=== PATIENT | female | born 1940 | race Caucasian/White ===

== ENCOUNTER 2017-04-09 07:15 | Inpatient (IN) | payer OTHER ==
[2017-04-11] MEDS ORDERED: ceFAZolin 2 GM/SWFI 2 GM/20 ML SYR IVP ONE (10:35)
[2017-04-15] MEDS ORDERED: ROPIVACAINE 0.2% 80 MG, EPINEPHrine 0.2 MG, KETOROLAC TROMETHAMINE 30 MG in BAG 0 ML IU ONE (06:00)
[2017-04-15] MEDS ORDERED: FAMOTIDINE 20 MG TAB PO ONE (06:00)
[2017-04-15] MEDS ORDERED: DEXAMETHASONE 4 MG/ML VIAL IVP ONE (06:00)
[2017-04-15] MEDS ORDERED: ceFAZolin 2 GM/SWFI 2 GM/20 ML SYR IVP ONE (06:00)
[2017-04-15] MEDS ORDERED: ACETAMINOPHEN 325 MG TAB PO ONE (06:00)
[2017-04-15] MEDS ORDERED: LR 1,000 ML IV ONE (06:11)
[2017-04-15] MEDS ORDERED: LIDOCAINE 1% 2 ML INJ ID PRN (06:11)
[2017-04-15] MEDS ORDERED: ceFAZolin 1 GM/5 ML SYR ONE (06:27)
[2017-04-15] MEDS ORDERED: CALCIUM CHLORIDE 1 GM/10 ML INJ ONE (06:28)
[2017-04-15] MEDS ORDERED: THROMBIN (BOVINE) 5,000 UNIT VIAL TP ONE (06:28)
[2017-04-15] MEDS ORDERED: MIDAZOLAM 2 MG/2 ML VIAL ONE (06:59)
[2017-04-15] MEDS ORDERED: MIDAZOLAM 2 MG/2 ML VIAL IVP ONE (06:59)
--- NOTE | 2017-04-15 07:00 | PDANEPAE ---
ANE Past Medical History - Cardiovascular History Hx Hypertension: Yes Hx Arrhythmias: No Hx Chest Pain: No Hx Coronary Artery / Peripheral Vascular Disease: No Hx CHF / Valvular Disease: No Hx Palpitations: No - Pulmonary History Hx COPD: No Hx Asthma/Reactive Airway Disease: No Hx Recent Upper Respiratory Infection: No Hx Oxygen in Use at Home: No Hx Sleep Apnea: No Sleep Apnea Screening Result - Last Documented: Negative - Neurologic History Hx Cerebrovascular Accident: No Hx Seizures: No Hx Dementia: No - Endocrine History Hx Diabetes: No Hypothyroid: Yes Obesity: no - Renal History Hx Renal Disorders: No - Liver History Hx Hepatic Disorders: No - Neurological & Psychiatric Hx Hx Neurological and Psychiatric Disorders: Yes Neurological / Psychiatric History Comment: depression - GI History Hx Gastrointestinal Disorders: No - Other Health History Other Health History: glaucoma. bruises easily - Chronic Pain History Chronic Pain: Yes (back, left side of cervical scoliosis) - Surgical History Prior Surgeries: bilat cararact, laser surgery glaucoma. spondythesis 2012 ANE Review of Systems Review of Systems: - Exercise capacity METS (RN): 4 METS ANE Patient History - Allergies Allergies/Adverse Reactions: No Known Allergies Allergy (Verified 03/19/14 15:58) - Home Medications Home Medications: Citalopram Hydrobromide [celeXA 10 MG] 10 mg PO DAILY 03/01/14 [Last Taken 1 Day Ago ~04/14/17] Levothyroxine [Synthroid 75 mcg (*)] 75 mcg PO DAILY06 03/01/14 [Last Taken 04:30] Cholecalciferol Vit D3 [Vitamin D3 (*)] 3,000 units PO DAILY 02/27/17 [Last Taken 1 Week Ago ~04/08/17] Fluticasone Nasal [Flonase Nasal [place] (RX)] 1 sprays NASAL BID 02/27/17 [Last Taken 04/15/17 04:30] Herbals/Supplements -Info Only 1 ea PO DAILY 02/27/17 [Last Taken 1 Week Ago ~] Indomethacin [Indocin 25 mg (*)] 50 mg PO DAILY PRN 02/27/17 [Last Taken 1 Week Ago ~04/08/17] LORazepam [Ativan (*)] 0.5 mg PO DAILY PRN 02/27/17 [Last Taken 1 Day Ago ~04/14] Latanoprost 0.005% [Xalatan 0.005% (*)] 1 drop EACHEYE HS 02/27/17 [Last Taken 1 Day Ago ~04/14/17] Lisinopril [Zestril 2.5 mg (*)] 2.5 mg PO DAILY 02/27/17 [Last Taken 1 Day Ago ~ 04/14/17] Tazarotene [Tazorac] 1 sheyla TP HS 02/27/17 [Last Taken 1 Day Ago ~04/14/17] - NPO status NPO Since - Liquids (Date): 04/14/17 NPO Since - Liquids (Time): 21:00 NPO Since - Solids (Date): 04/14/17 NPO Since - Solids (Time): 21:00 - Smoking Hx Smoking Status: Never smoked - Family Anes Hx Family Hx Anesthesia Complications: none ANE Labs/Vital Signs - Vital Signs Blood Pressure: 146/73 Heart Rate: 73 Respiratory Rate: 18 O2 Sat (%): 95 Height: 152.4 cm Weight: 55.792 kg ANE Physical Exam - Airway Neck exam: FROM Mallampati Score: Class 1 Mouth exam: normal dental/mouth exam - Pulmonary Pulmonary: no respiratory distress - Cardiovascular Cardiovascular: regular rate and rhythym - ASA Status ASA Status: II ANE Anesthesia Plan Anesthesia Plan: GA w LMA, spinal
--- NOTE | 2017-04-15 07:05 | PDHPUP ---
History & Physical Update H&P update statement: This history and physical update is based on an assessment of the patient which was completed after admission or registration (within 24 hours), but prior to the surgery/procedure. H&P update: H&P reviewed & patient examined, no change in patient's condition since H&P completed
[2017-04-15] MEDS ORDERED: fentaNYL 100 MCG/2 ML INJ ONE (07:08)
[2017-04-15] MEDS ORDERED: PROPOFOL/EMULSION 500 MG/50 ML BOTTLE IV ONE (07:08)
[2017-04-15] MEDS ORDERED: LIDOCAINE 2% 5 ML SDV ONE (07:30)
[2017-04-15] MEDS ORDERED: NALOXONE HCL 0.4 MG/ML INJ IVP PRN (09:26)
[2017-04-15] MEDS ORDERED: HYDROCODONE/APAP 5/325 TAB PO PRN (09:26)
[2017-04-15] MEDS ORDERED: fentaNYL 100 MCG/2 ML INJ IVP PRN (09:26)
[2017-04-15] MEDS ORDERED: ONDANSETRON 4 MG/2 ML VIAL IVP PRN (09:26)
[2017-04-15] MEDS ORDERED: LR 500 ML IV PRN (09:26)
--- NOTE | 2017-04-15 09:54 | POSTOPPROG ---
Post Op Note Date of Operation: 04/15/17 Surgeon: Mouna Plascencia Medical Specialist: Monique Clemens PA-C Anesthesia: Spinal Pre-op Diagnosis: right knee osteoarthritis Post-op Diagnosis: right knee osteoarthritis Indication: right knee pain Procedure: right TKA Inf/Abcess present in the surg proc area at time of surgery?: No EBL: Minimal Complications: none
[2017-04-15] MEDS ORDERED: POLYETHYLENE GLYCOL 3350 17 GM PKT PO PRN (09:56)
[2017-04-15] MEDS ORDERED: CYCLOBENZAPRINE 10 MG TAB PO PRN (09:56)
[2017-04-15] MEDS ORDERED: MAGNESIUM HYDROXIDE 30 ML UDCUP PO PRN (09:56)
[2017-04-15] MEDS ORDERED: LACTULOSE 20 GM/30 ML UDCUP PO PRN (09:56)
[2017-04-15] MEDS ORDERED: DIPHENOXYLATE/ATROPINE LOMOTIL 1 TAB PO PRN (09:56)
[2017-04-15] MEDS ORDERED: PROMETHAZINE HCL 25 MG/ML INJ IVP PRN (09:56)
[2017-04-15] MEDS ORDERED: BISACODYL 10 MG SUPP PR PRN (09:56)
[2017-04-15] MEDS ORDERED: PROMETHAZINE HCL 25 MG SUPPR PR PRN (09:56)
[2017-04-15] MEDS ORDERED: FAMOTIDINE 20 MG TAB PO PRN (09:56)
[2017-04-15] MEDS ORDERED: diphenhydrAMINE 25 MG CAP PO PRN (09:56)
--- NOTE | 2017-04-15 09:56 | SOAPPROG ---
SOAP Progress Note Assessment/Plan: Assessment/Plan: 76y/o female s/p right TKA - stable and doing well - orders as written - post-op xrays pending - PT/OT, no knee flexion beyond 90 degrees - active care system for DVT prevention - anticipate discharge home tomorrow pending clinical course - call with issues or concerns 04/15/17 09:54 Subjective: Doing well, no pain Objective: Vital Signs Temp Pulse Resp BP Pulse Ox 36.7 C 73 18 111/51 L 95 04/15/17 09:34 04/15/17 07:00 04/15/17 09:46 04/15/17 09:46 04/15/17 09:46 NAD, no distress EOMi, face symmetric MAEx4 incision clean, dressed ICD10 Worksheet Patient Problems: Problems Problem Status Onset Osteoarthritis Acute - ICD10 Problem Qualifiers (1) Osteoarthritis
[2017-04-15] MEDS ORDERED: LORazepam 0.5 MG TAB PO PRN (10:00)
[2017-04-15] MEDS ORDERED: LR 1,000 ML IV SCH (10:00)
--- NOTE | 2017-04-15 10:04 | POSTANESTH ---
Post Anesthetic Evaluation Cardiovascular Status: Normal, Stable Respiratory Status: Normal, Stable Level of Consciousness/Mental Status: Can Participate in Eval Pain Control: Adequate, Prn Tx Ordered Nausea/Vomiting Control: Adequate, Prn Tx Ordered Complications Possibly Related to Anesthesia: None Noted (Adductor canal block performed under US guidance in PACU.)
[2017-04-15 10:57] VITALS: RESP 16
[2017-04-15] MEDS: ACETAMINOPHEN 325 MG TAB PO SCH ×2 (13:22→18:06)
[2017-04-15] MEDS: oxyCODONE IR 5 MG TAB PO PRN ×3 (13:23→21:56)
[2017-04-15] MEDS: ceFAZolin 2 GM/DEXTROSE 100 ML IV SCH ×2 (13:24→21:55)
--- NOTE | 2017-04-15 17:52 | GOP ---
[f rep st] OPERATIVE REPORT DATE OF OPERATION: 04/15/2017 SURGEON: Mouna Plascencia MD MECHANICAL MANUFACTURING TECHNICIAN: Monique Clemens, ROSEMARIE ANESTHESIA: Spinal with adductor canal block and sedation. PREOPERATIVE DIAGNOSIS: Severe osteoarthritis, right knee. POSTOPERATIVE DIAGNOSIS: Severe osteoarthritis, right knee. PROCEDURE PERFORMED: Right total knee arthroplasty. FINDINGS: Preoperative x-rays of the patient's right knee demonstrated severe osteoarthritis. At th e time of surgery, this finding was confirmed. The patient had complete loss of the articular cartil age in the lateral compartment. There was moderate loss in the medial compartment and patellofemoral joint. At the time of surgery, a cemented Dobbs and Nephew Journey II total knee arthroplasty was p erformed. A posterior stabilized knee was utilized. A size 2 femoral component was cemented into pl galina. This was Oxinium coated. A size 1 tibial base plate was also utilized. This also was cemented into place. A 13 mm thick cross-linked polyethylene insert was placed in the metal backing of the t ibia. The knee was taken through range of motion and noted to be stable in full extension and flexio n. The patient achieved excellent extension and 135 degrees of flexion on the table. Finally, a 29 mm oval patellar component was cemented into place. This tracked well in the trochlear groove. ESTIMATED BLOOD LOSS: Less than 100 cc. DESCRIPTION OF PROCEDURE: The patient was taken to the operating room, placed in supine position on the operating table. Following induction of adequate spinal anesthesia and sedation, the right leg a nd knee were prepped and draped in the usual sterile manner. The patient received 2 g of IV Ancef. The leg was elevated and exsanguinated, and the tourniquet inflated to 275 mmHg. A midline incision was made extending from 2 fingerbreadths superior to the superior pole of the patella distally to the tibial tubercle. Incision was carried down through the subcutaneous tissue to the retinaculum of th e knee. A medial parapatellar arthrotomy was then performed and the patella was everted laterally. Our attention was turned first to the patella. The thickness of the patella was measured and then a 9 mm cut was taken from the posterior patella. The patella was sized and the oval 29 mm patellar com ponent was chosen as the best fit. The metal protector plate was placed on the cut surface of the pa tella and it was placed in the lateral gutter. The knee was flexed up and then a drill hole was plac ed in the distal femur and using intramedullary referencing, the distal femoral cutting block was pos itioned on the distal femur. A +2 cut was taken from the distal femur due to the patient's pre-exist ing flexion contracture. The femur was then sized and the size 2 femoral component was felt to be th e best fit. The block was pinned and the anterior, posterior, and chamfer cuts were made. The notch was then cleared. The reamer was used first followed by the box estimator. A trial reduction was perf ormed and a good fit was noted with the size 2 femoral component. The component was removed and our attention was turned to the tibia. The lollipop had been used prior to cutting the femur to determine the thickness of the tibial cut. The tibia was retracted anteriorly and again intramedullary referencing was used for the tibial cut. A drill hole was placed in the midline of the tibia and the intramedullary guide was inserted and po sitioned and pinned based on the previous line determined by the lollipop. Once the alignment was de termined and the cutting block was positioned and pinned, the tibial cut was made. Care was taken to protect the posterior knee and the collateral ligaments. The cut surface of the tibia was then diane ured and a size 1 tibial component was felt to be the best fit. It was pinned into position and then the keel punch was utilized. A trial reduction was performed with all the components and the knee w as taken through a range of motion. It was stable in extension and flexion. The 13 mm polyethylene was felt to be the best fit. The patellar component was also drilled and a trial was performed. It tracked well in the trochlear groove. All the trial components were removed and the bony surfaces were thoroughly irrigated and dried. The cement was mixed. The tibial component was cemented first, followed by the femoral component, and t he patellar component. Pressure was held on all the components while the cement hardened. Excess ce ment was removed from around the edges of the prosthesis. The posterior capsule and extensor mechani sm were injected with joint cocktail. Once the cement was hard, the trial polyethylene was removed a nd the permanent polyethylene insert was placed in the metal backing of the tibia. The wound was tho roughly irrigated out. The retinaculum of the knee was closed using #2 FiberWire in a [id number] fashion. The subcutaneous tissues were closed using 2-0 Vicryl. The skin was closed using milad . Sterile dressings were applied. The patient tolerated the procedure well. There were no complica tions. Estimated blood loss minimal. Final sponge and needle counts were correct. The patient was transported to the recovery room in good condition. /[id number]/MODL
[2017-04-15] MEDS ORDERED: TAZAROTENE TP SCH (21:00)
[2017-04-15] MEDS ORDERED: LATANOPROST 0.005% 2.5 ML OPHT DROPS EACHEYE SCH (21:00)
[2017-04-15] MEDS: SENNOSIDES/DOCUSATE SODIUM TAB PO SCH (22:00)
[2017-04-15] MEDS: FLUTICASONE NASAL 120 SPRAYS/16 GM MDI EACHNARE SCH (22:09)
[2017-04-16] MEDS: ACETAMINOPHEN 325 MG TAB PO SCH ×3 (01:12→14:11)
[2017-04-16 05:38] LABS: HEMATOCRIT 30.9 % (38.0-47.0); HEMOGLOBIN 11.2 g/dL (12.6-16.3)
[2017-04-16] MEDS ORDERED: LEVOTHYROXINE 75 MCG TAB PO SCH (06:00)
[2017-04-16] MEDS: oxyCODONE IR 5 MG TAB PO PRN (06:03)
[2017-04-16 07:19] VITALS: PULSE 57; TEMP 97.5; O2SAT 96
[2017-04-16] MEDS ORDERED: LISINOPRIL 2.5 MG TAB PO SCH (09:00)
[2017-04-16] MEDS ORDERED: CITALOPRAM 20 MG TAB PO SCH (09:00)
[2017-04-16] MEDS ORDERED: ASPIRIN 325 MG TAB PO SCH (09:00)
[2017-04-16] MEDS ORDERED: NON-FORMULARY NEW DRUG (Citalopram Hydrobromide [Celexa 10 Mg] 10 MG) PO SCH (09:00)
[2017-04-16] MEDS ORDERED: FERROUS SULFATE 140 MG TAB.ER PO SCH (09:00)
[2017-04-16] MEDS ORDERED: ASPIRIN 81 MG CHEWABLE TAB PO SCH (09:00)
[2017-04-16] MEDS: SENNOSIDES/DOCUSATE SODIUM TAB PO SCH (09:27)
[2017-04-16 09:28] VITALS: BP 107/59
--- NOTE | 2017-04-16 09:48 | ASMTCMCOM ---
CM Note CM Note Notes: Chart reviewed. Patient has home eval via [facility] for presurgical evaluation. She wishes to have [facility] provide her home health care physical therapy. Referral made via [employer]. Address verified as well as alternate phone number. Her [id number] is also providing support. Offered to refer to [facility]. Patient declines at this time. Physical therapy recommending home PT. Plan to dc with [facility] when medically stable. CM to follow Date Signed: 04/16/2017 09:47 AM Electronically Signed By:Lola Irvin RN
[2017-04-16] MEDS: FLUTICASONE NASAL 120 SPRAYS/16 GM MDI EACHNARE SCH (10:48)
--- NOTE | 2017-04-16 10:57 | SOAPPROG ---
SOAP Progress Note Assessment/Plan: Assessment/Plan: 76y/o female s/p right TKA - stable and doing well - pain well managed - post-op xrays show stable components - PT/OT, no knee flexion beyond 90 degrees; did well with stairs this morning - active care system for DVT prevention - discharge home early afternoon today; encouraged patient to call with any issues or concerns, f/u in 2 weeks; needs home PT/OT 04/16/17 10:55 Subjective: Pain well controlled. Very pleased with her progress thus far Objective: Vital Signs Temp Pulse Resp BP Pulse Ox 36.4 C 57 L 16 107/59 L 96 04/16/17 07:17 04/16/17 07:17 04/16/17 07:17 04/16/17 09:27 04/16/17 07:17 Laboratory Results 04/16/17 04:00 04/15/17 04/16/17 04/17/17 05:59 05:59 05:59 Intake Total 3225 Output Total 1100 Balance 2125 NAD, well appearing, no distress EOMi, face symmetric MAEx4 right knee extension 5, flexion 90 incision CDI, minimal bloody drainage at inferior portion of incision dressing changed in sterile fashion ICD10 Worksheet Patient Problems: Problems Problem Status Onset Osteoarthritis Acute - ICD10 Problem Qualifiers (1) Osteoarthritis
--- NOTE | 2017-04-16 11:02 | PDIAF ---
- Diagnosis Diagnosis: right knee arthritis Code Status: Full Code - Medication Management Discharge Medications: Medications to Continue on Transfer Citalopram Hydrobromide [celeXA 10 MG] 5 mg PO HS 03/01/14 [Last Taken 1 Day Ago ~04/14/17] Levothyroxine [Synthroid 75 mcg (*)] 75 mcg PO DAILY06 03/01/14 [Last Taken 04:30] Cholecalciferol Vit D3 [Vitamin D3 (*)] 3,000 units PO DAILY 02/27/17 [Last Taken 1 Week Ago ~04/08/17] Fluticasone Nasal [Flonase Nasal [place]] 1 sprays NASAL BID 02/27/17 [Last Taken 04/15/17 04:30] Herbals/Supplements -Info Only 1 ea PO DAILY 02/27/17 [Last Taken 1 Week Ago ~] Indomethacin [Indocin 25 mg (*)] 25 mg PO DAILY PRN 02/27/17 [Last Taken 1 Week Ago ~04/08/17] LORazepam [Ativan (*)] 0.5 mg PO DAILY PRN 02/27/17 [Last Taken 1 Day Ago ~04/14] Latanoprost 0.005% [Xalatan 0.005% (*)] 1 drop EACHEYE HS 02/27/17 [Last Taken 1 Day Ago ~04/14/17] Lisinopril [Zestril 2.5 mg (*)] 2.5 mg PO DAILY 02/27/17 [Last Taken 1 Day Ago ~ 04/14/17] Tazarotene [Tazorac] 1 sheyla TP 02/27/17 [Last Taken 1 Day Ago ~04/14/17] Acetaminophen [Tylenol 325mg (*)] 650 mg PO Q6HRS tab 04/16/17 [Last Taken Unknown] Aspirin [Aspirin 81mg (*)] 81 mg PO DAILY tab.chew 04/16/17 [Last Taken Unknown ] Ferrous Sulfate [Slow Fe 140 MG (*)] 140 mg PO DAILY tab.er 04/16/17 [Last Taken Unknown] oxyCODONE IR [Oxycodone Ir (*)] 5 - 10 mg PO Q4-6PRN PRN tab 04/16/17 [Last Taken Unknown] Discharge Medications: Refer to the Discharge Home Medication list for PRN reason. - Orders Services needed: Home Care, Physical Therapy, Occupational Therapy Home Care Face to Face: I certify that this patient was under my care and that I had the required [id number] encounter meeting the encounter requirements on the discharge day. My findings support the fact that the patient is homebound as defined in Home Care Face to Face Continued: CMS Chapter 7 Medicare Benefits Manual 30.1.1 , The condition of the patient is such that there exists a normal inability to leave home and consequently, leaving home would require a considerable and taxing effort. Diet Recommendation: no restrictions on diet Dayron Stockings Discontinue Date: active care system Wound Care Instructions: keep incision clean and dry Sutures/Candie Site: will remove at post-op visit Activity/Weight Bearing Restrictions: WBAT, use walker for assistance - Follow Up Care Current Providers and Referrals: FELIPE VILLALTA [Primary Care Provider] -
--- NOTE | 2017-04-16 11:16 | ASMTCMCOM ---
CM Note CM Note Notes: Patient medically cleared for discharge. Updated forms sent per [employer]scripts. Spoke with intake at [facility]. CM avaoilable should other needs arise. Date Signed: 04/16/2017 11:15 AM Electronically Signed By:Lola Irvin RN
--- NOTE | 2017-04-16 16:20 | ASDISCHSUM ---
Discharge Information Plan Status:Home with Home Health Medically Cleared to Leave:04/15/2017 Discharge Date:04/16/2017 03:19 PM CM D/C Disposition:Home Health Service [facility] D/C Disposition:[id number] Projected Discharge Date:04/16/2017 11:00 AM Transportation at D/C:Family Discharge Delay Reason: Follow-Up Date:04/16/2017 11:00 AM Discharge Slot: Final Diagnosis: Placement Information Referral Type:*Home Health Care Services Referral ID:[id number] Provider Name:[facility] [place] Address 1:[address] [address] Address 2: City:[place] Selection Factors: State:[place] Patient Contact Information Contact Name:YAO Relationship:Son Address: Work Phone: City: [facility][1] Phone: [facility]: Email: Financial Information Financial Class: Primary Plan Desc:MEDICARE INPATIENT Primary Plan Number:[id number] Secondary Plan Desc:[facility] Secondary Plan Number:[id number] Assessment Information LACE LACE Length of stay for Answers: 1 day current admission Acuity / Level of Care Answers: No. Emergency dept visits in Answers: 0 last 6 months Score: 1 Date Signed: 04/16/2017 09:42 AM Electronically Signed By:Lola Irvin RN [facility] CM Progress Note CM Note CM Note Notes: Chart reviewed. Patient has home eval via [facility] for presurgical evaluation. She wishes to have [facility] provide her home health care physical therapy. Referral made via allscripts. Address verified as well as alternate phone number. Her [id number] is also providing support. Offered to refer to [facility]. Patient declines at this time. Physical therapy recommending home PT. Plan to dc with [facility] when medically stable. CM to follow Date Signed: 04/16/2017 09:47 AM Electronically Signed By:Lola Irvin RN [facility] CM Progress Note CM Note CM Note Notes: Patient medically cleared for discharge. Updated forms sent per [employer]. Spoke with intake at [facility]. CM avaoilable should other needs arise. Date Signed: 04/16/2017 11:15 AM Electronically Signed By:Lola Irvin RN Intervention Information
--- NOTE | 2017-04-19 16:38 | GDS ---
[f rep st] DISCHARGE SUMMARY ADMISSION DIAGNOSIS: Right knee osteoarthritis. DISCHARGE DIAGNOSIS: Right knee osteoarthritis. HOSPITAL COURSE: Patient is a pleasant 76-year-old female, who is well known to our service for ongo ing right knee pain. She had evidence of severe osteoarthritis and after careful decision-making and discussion, she elected to proceed forth with a right total knee arthroplasty. This procedure was done by Dr. Mouna Plascencia on April 15, 2017. She tolerated the procedure wel l without complication. She was in good and stable condition in the PACU and was transferred to the floor when PACU criteria was met. She worked with physical therapy and occupational therapy and cont inued to improve. Her pain was well managed. Her postoperative x-rays showed stable components. Darren soto was in good and stable condition and ready for discharge home with home health care on April 16, 2017. Her followup appointment is scheduled for April 29 at 2 p.m. at our office. All of her questions were answered prior to discharge home and she was given strict instruction to follow up sooner with a ny issues or changes. /[id number]/MODL
== END 2017-04-16 15:19 | disposition home health service (06) | DRG 470 ==
LOC: F3N 04-15 05:52
PROVIDERS: ADMIT Orthopaedic Surgery; ATTEND Orthopaedic Surgery
PROC: 0SRC0J9 Replacement of Right Knee Joint with Synthetic Substitute, Cemented, Open Approach (ICD-10-PCS; principal; 2017-04-15 07:15)
DX: M17.11 Unilateral primary osteoarthritis, right knee (principal)
CPT/HCPCS: 97110-GP; 97116-GP; 97161-GP; 97165-GO; 97530-GP; C1713; G8978-GP-CJ; G8979-GP-CI; G8980-GP-CI; G8987-GO-CI; G8988-GO-CI; J0171; J0690; J1100; J1885; J2250; J2704; J2795; J3010